=== PATIENT | female | born 1965 | race Caucasian/White ===

== ENCOUNTER 2020-05-30 07:39 | Day surgery (SDC) | payer OTHER, SELFPAY ==
[2020-05-29 13:03] VITALS: BMI 30.7
--- NOTE | 2020-05-29 14:09 | HO.ANESPROP2 ---
Documented by User: Lidya Kwan 05/29/20 14:17 HPI - Anesthesia Eval Consult details Narrative: 55yo F for Spinal Stimulation Implant,lumbar s/p trial spinal stim 11/2019 [facility] Past Medical History Medical History Arthritis Asthma Back pain GERD (gastroesophageal reflux disease) HTN (hypertension) BETTY (obstructive sleep apnea) Social History Social History Smoking Status: Never smoker Second Hand Smoke Exposure: No Use of substances other than those prescribed or required for medical reasons: No Advance Directives: No Advance Directives Information Provided: Yes Advance Directives on File: No Meds Allergies Allergy/AdvReac Type Severity Reaction Status Date / Time ibuprofen [IBUPROFEN] Allergy Unknown UNKNOWN Verified 05/30/20 08:00 From [facility] Allergy Severe ANAPHYLAXIS Uncoded 05/30/20 08:00 Home Medications Medication Instructions Recorded Confirmed Type bupropion HCl 1 tab PO QAM 05/29/20 05/29/20 History clonazepam 1 tab PO TID PRN 05/29/20 05/29/20 History fexofenadine 1 tab PO DAILY 05/29/20 05/29/20 History gabapentin 1 cap PO TID 05/29/20 05/29/20 History lisinopril 1 tab PO DAILY 05/29/20 05/29/20 History mirtazapine 1 tab PO DAILY 05/29/20 05/29/20 History omeprazole 10 mg PO DAILY 05/29/20 05/29/20 History oxycodone-acetaminophen 1 tab PO TID 05/29/20 05/29/20 History tamoxifen 1 tab PO DAILY 05/29/20 05/29/20 History tamoxifen 10 mg PO BID 05/29/20 05/29/20 History Exam Exam Date and Time: May 29, 2020 1409 Height,Weight and Vital Signs: Height 5 ft 2 in Weight 76.26 kg Assessment and Plan Assessment Anesthesia Assessment: Chart Reviewed Documented by User: Luly Pagan 05/30/20 09:56 [facility] Past Medical History Medical History Arthritis Asthma Back pain GERD (gastroesophageal reflux disease) HTN (hypertension) BETTY (obstructive sleep apnea) Social History Social History Smoking Status: Never smoker Second Hand Smoke Exposure: No Use of substances other than those prescribed or required for medical reasons: No Advance Directives: No Advance Directives Information Provided: Yes Advance Directives on File: No Meds Allergies Allergy/AdvReac Type Severity Reaction Status Date / Time ibuprofen [IBUPROFEN] Allergy Unknown UNKNOWN Verified 05/30/20 08:00 From [facility] Allergy Severe ANAPHYLAXIS Uncoded 05/30/20 08:00 Home Medications Medication Instructions Recorded Confirmed Type bupropion HCl 1 tab PO QAM 05/29/20 05/29/20 History clonazepam 1 tab PO TID PRN 05/29/20 05/29/20 History fexofenadine 1 tab PO DAILY 05/29/20 05/29/20 History gabapentin 1 cap PO TID 05/29/20 05/29/20 History lisinopril 1 tab PO DAILY 05/29/20 05/29/20 History mirtazapine 1 tab PO DAILY 05/29/20 05/29/20 History omeprazole 10 mg PO DAILY 05/29/20 05/29/20 History oxycodone-acetaminophen 1 tab PO TID 05/29/20 05/29/20 History tamoxifen 1 tab PO DAILY 05/29/20 05/29/20 History tamoxifen 10 mg PO BID 05/29/20 05/29/20 History Exam Airway Mallampati Class: II TM Dist: >3cm Neck ROM: Full Assessment and Plan Assessment Anesthesia Assessment: Anesthesia Plan Discussed and Chart Reviewed Final Anesthetic Review NPO: Yes ASA Class: II Final Preanesthetic Review: No Changes in Pt Med Stat, Meds/Allgs Chart Reviewed, Consent Obtained/Reviewed and Anes Risks/Benef Reviewed Patient Risk: Low Procedure Risk: Low Assessment/Block/Sedation in SS: Assess/Block/Sedation-SS Anesthetic Plan Anesthetic Plan: MAC: Disposition: Standard PACU
--- NOTE | 2020-05-30 07:45 | MHC.SHP ---
Pre-Procedural Eval Section A The patient is an INPATIENT: No The History & Physical has been completed within 30 days and I have reviewed it.: No Section B Chief Complaint: lumbar discomfort Relevant Family History (Specify if Yes): No Allergies: Allergies Allergy/AdvReac Type Severity Reaction Status Date / Time ibuprofen [IBUPROFEN] Allergy Unknown UNKNOWN Unverified 04/17/20 16:40 From [facility] Allergy Severe ANAPHYLAXIS Uncoded 04/17/20 16:40 Review of Systems Sugical H&P ROS: Negative: Constitution, Cardiovascular, Respiratory, Neurological, Psychiatric, Hem-Onc, Allergic/Immunologic, Gastrointestinal, Genitourinary, Musculoskeletal, Integumentary, Endocrine and Eyes/Ears/Nose/Throat Exam Surgical H&P Exam: Normal: HEENT, Normal: Heart, Normal: Lungs, Normal: Extremities, Normal: Abdomen, Normal: Skin and Normal: Neurological Plan Diagnosis/Plan: Unchanged Patient has been examined and remains a candidate for the planned procedure
[2020-05-30 07:59] VITALS: BP 136/77; PULSE 85; RESP 18; TEMP 36.7; O2SAT 97
[2020-05-30] MEDS: ceFAZolin Sodium/Dextrose,Iso 2 GM/50 ML PIGGYBACK IV (08:18)
[2020-05-30] MEDS: Lactated Ringers 1,000 ML 100 ML IVCONT (08:18)
--- NOTE | 2020-05-30 10:06 | FL_ITS ---
EXAMINATION: XR FLUOROSCOPY WITH IMAGES CLINICAL INFORMATION: Spinal stimulation implantation COMPARISON: Fluoroscopic spot images 11/30/2019 TECHNIQUE: Fluoroscopy performed by Dr. Duane Kenney. Fluoroscopy time: 0.9 minutes DAP: 8.24 Gycm2 Images: 2 FINDINGS: There are 2 wires posterior spinal canal with electrode tips at level of T7-T8. FL/FL guidance in OR IMPRESSION: Fluoroscopy for pain management procedures.
[2020-05-30 12:48] VITALS: BP 115/64; PULSE 85; RESP 16; TEMP 36.1; O2SAT 97
--- NOTE | 2020-05-30 12:56 | PM.OP ---
Brief Operative Note Date of procedure: 05/30/20 Pre-op diagnosis: Postlaminectomy syndrome Post-op diagnosis: same Procedure: implantation of spinal cord stimulator Med[employer] with 2 thoracic leads Implants: spinal cord stimulator battery [employer]ell[employer] and epidural leads Surgeon: Duane Kenney MD Anesthesia: MAC and local Estimated blood loss (mL): 20 IV fluids (mL): 1,000 Pathology: none sent Condition: stable Disposition: PACU
[2020-05-30] MEDS: Acetaminophen 325 MG TABLET 650 MG PO (13:02)
[2020-05-30] MEDS: oxyCODONE HCl Immed Release 5 MG TABLET PO (13:02)
[2020-05-30 13:03] VITALS: BP 120/69; PULSE 76; RESP 16; O2SAT 98
[2020-05-30 13:18] VITALS: BP 126/75; PULSE 75; RESP 18; O2SAT 99
--- NOTE | 2020-05-30 13:42 | HO.POSTANES ---
Post Anesthesia Evaluation Post Anesthesia Evaluation Vital Signs: Vital Signs Temp Pulse Resp BP Pulse Ox 05/30/20 13:18 97.0 F 75 18 126/75 99 05/30/20 13:03 76 16 120/69 98 05/30/20 12:48 97.0 F 85 16 115/64 97 05/30/20 07:59 98.0 F 85 18 136/77 97 Anesthesia: Monitored Mental Status: Awake Pain Control: Satisfactory Nausea/Vomiting: None Hydration: Adequate Anesthesia-Related Issues: No Anes. Related Issues
--- NOTE | 2020-05-30 15:59 | W.PM.OPN ---
Operative Note Operative Note Narrative: Halley -is very pleasant 55 years old lady who came today into the operating room for implantation of spinal cord stimulator for the treatment of pain related to degenerative disc disease. She had successful trial of spinal cord stimulation. Preoperatively patient received _2 g cefazolin _approximately 30 minutes before the procedure. After obtaining informed consent patient was brought to the operating room, she was positioned prone on operating table, [place] [employer] monitors were applied and patient was deeply sedated. Time-out was performed delineating correct site, side, the nature of the procedure, patient's allergy, preoperative antibiotic. All operating room staff was participating in OR time-out procedure. Patient's entire back was prepped with ChloraPrep twice and draped with full body drape including Ioban film. Sterilely draped C-arm was brought over operating field and square picture of T12, L1, L2 vertebrae were demonstrated on the screen. THE PROJECTION OF L2-L3 right laminas TO THE SKIN WERE INFILTRATED WITH LIDOCAINE 2% MIXED WITH BUPIVACAINE 0.5%. Six CM LONG VERTICAL INCISION using 15 blade scalpel WAS PERFORMED IN paramedian vertical fashion 3 cm away from midline to the right. THOROUGH HEMOSTASIS WAS PERFORMED using electrocautery. Thorough tissue dissections was performed until prevertebral fascia was freed from overlying tissues. Attention FIRST was concentrated on the RIGHT T12-L1 epidural interspace. The location of the projection of the right pedicle center of the L3 vertebra was found on the prevertebral fascia using C-arm. This location was injected with mixture of lidocaine 2% and Marcaine 0.5% 5 cc in approximate direction of needle advancement.. After that 10 cm 14 gauge curved introducer epidural needle was inserted through the fascia and advanced toward [id number] interspace on the right. The advancement of the needle was performed on anterior posterior and lateral views. Guitar wire and loss of resistance technique were used to locate epidural space. When guitar wire was spread in the epidural fashion, epidural lead was inserted through the skin and it was advanced to T8 position POSTERIOR EPIDURAL SPACE slightly left TO THE MIDLINE. After that location of the projection of the right pedicle center of the L2 vertebra was found -using C-arm. This location was injected with mixture of lidocaine 2% and Marcaine 0.5% 5 cc.. . 15 cm 14 gauge curved introducer epidural needle was inserted through the fascia and advanced to T12-L1 epidural interspace on the right. The advancement of the needle was performed on anterior posterior and lateral views. Guitar wire and loss of resistance technique were used to locate epidural space. When guitar wire was spread in the epidural fashion, epidural lead was inserted through the needle and advanced to the T8 POSTERIOR EPIDURAL SPACE strictly at the MIDLINE. THE LOCATION OF BOTH LEADS WAS VERIFIED ON ANTERIOR POSTERIOR AND LATERAL VIEWS. At this moment patient was awaken and the epidural leads were connected to the testing device. The patient reported stimulation corresponding to her pain. After satisfactory position of the leads were established the needles were withdrawn, the stylette wires were removed from the epidural leads. The anchoring devices were dislodged on the leads and advanced to the level of the skin. The anchoring devices were advanced along the epidural leads and dislodged and epidural leads at the level of prevertebral fascia. They were sutured to prevertebral fascia with 2 separate Tycron sutures per each anchoring device. After that the wound was irrigated with copious amount of Vancomycin containing normal saline and packed with Vancomycin soaked 4 x 4. After that attention was concentrated on the left loin of the patient where she wanted battery to be implanted. 6 cm long horizontal incision was performed 3 cm below the lowest point of her ribs. Thorough hemostasis was obtained. The wound was irrigated with copious amount of Vancomycin contained normal saline. Tunneling device was used to connect the 2 wounds and epidural leads were dislodged into side wound. They were connected to the [employer] battery and locked with a locking screwdriver device. After that the anchoring sutures ethibond were applied in the most superior medial and most superior lateral corners of the wound. After that they were connected to the anchoring holes on the body of the battery, the epidural leads were gathered behind the body of the [employer] battery, the battery and the leads were inserted into the pocket wound and after that the anchoring 2 sutures were tied. The wounds were irrigated again with Vancomycin containing normal saline, thorough hemostasis was checked, and after that the wounds were closed using 0 Vicryl. After that the skin edges wore approximated using 2 0 Vicryl, rissa were applied to the wounds at the level of the skin. Bacitracin ointment was applies to the level of the rissa and sterile dressings were applied to the staple lines. Two large Tegaderm were applied to hold the dressing to the patient's skin. Abdominal binder to wear was provided to the patient. At this moment patient was awaken and transferred to the bed. She was recovering uneventfully in PACU.
== END 2020-05-30 14:00 | disposition home or self-care (01) ==
PROVIDERS: PCP Internal Medicine; Visit Provider Anesthesiology
PROC: (CPT 63685; principal; 2020-05-30 09:30)
DX: M54.16 Radiculopathy, lumbar region (principal); M96.1 Postlaminectomy syndrome, not elsewhere classified; M54.5 Low back pain; I10 Essential (primary) hypertension; G47.33 Obstructive sleep apnea (adult) (pediatric); K21.9 Gastro-esophageal reflux disease without esophagitis; J45.909 Unspecified asthma, uncomplicated; Z88.8 Allergy status to other drugs, medicaments and biological substances; Z79.899 Other long term (current) drug therapy
CPT/HCPCS: 63685; 63650 ×2; J0690; J2250; J3010; J3370

== ENCOUNTER → 2020-06-05 11:29 | Outpatient (BNVA) | payer OTHER, SELFPAY | PROVIDERS: PCP Internal Medicine; Referring Provider Internal Medicine; Visit Provider Anesthesiology | DX: Z48.89 Encounter for other specified surgical aftercare (principal); M96.1 Postlaminectomy syndrome, not elsewhere classified; M54.16 Radiculopathy, lumbar region; G89.4 Chronic pain syndrome | CPT/HCPCS: 99212 ==

== ENCOUNTER → 2020-06-11 08:52 | Outpatient (BNVA) | payer OTHER, SELFPAY | PROVIDERS: PCP Internal Medicine; Visit Provider Anesthesiology | DX: G89.4 Chronic pain syndrome (principal); M96.1 Postlaminectomy syndrome, not elsewhere classified; M54.16 Radiculopathy, lumbar region; Z96.82 Presence of neurostimulator | CPT/HCPCS: 99212 ==